=== PATIENT | female | born 1990 | race Caucasian/White ===

== ENCOUNTER 2017-05-26 17:03 | Inpatient (IN) | payer OTHER ==
[2017-05-26] MEDS ORDERED: IBUPROFEN 600 MG TAB PO (18:30)
[2017-05-26] MEDS ORDERED: CARBOPROST 250 MCG INJ IM (18:30)
[2017-05-26] MEDS ORDERED: DINOPROSTONE 10 MG VAG SUPP VAG (18:30)
[2017-05-26] MEDS ORDERED: MISOPROSTOL 200 MCG TAB PR (18:30)
[2017-05-26] MEDS ORDERED: LIDOCAINE 1% (MPF) 30 ML INJ INJ (18:30)
[2017-05-26] MEDS ORDERED: BUTORPHANOL 2 MG INJ IV ×2 (18:30)
[2017-05-26] MEDS ORDERED: OXYTOCIN 30 UNITS/LR 500 ML IV ×2 (18:30)
[2017-05-26] MEDS ORDERED: METHYLERGONOVINE 0.2 MG INJ IM (18:30)
[2017-05-26 18:55] LABS: ADD MAN DIFF? NO
[2017-05-26 18:58] LABS: WHITE BLOOD COUNT 9.9 10^3/ul (4.8-10.8)
[2017-05-26 18:58] LABS: BASOPHILS % 0.3 % (0.0-2.0); EOSINOPHILS # 0.5 10^3/ul (0.0-0.5); EOSINOPHILS % 4.7 % (0.0-7.0); HEMATOCRIT 34.5 % (37.0-47.0); HEMOGLOBIN 11.2 g/dl (12.0-16.0); LYMPHOCYTES # 2.1 10^3/ul (0.8-2.9); LYMPHOCYTES % 21.3 % (15.0-51.0); MEAN CORPUSCULAR HEMOGLOBIN 27.5 pg (29.0-33.0); MEAN CORPUSCULAR HGB CONC 32.5 g/dl (32.0-37.0); MEAN CORPUSCULAR VOLUME 84.6 fl (82.0-101.0); MEAN PLATELET VOLUME 9.8 fl (7.4-10.4); MONOCYTE # 0.5 10^3/ul (0.3-0.9); MONOCYTES % 5.1 % (0.0-11.0); NEUTROPHIL # 6.8 10^3/ul (1.6-7.5); NEUTROPHILS % 68.3 % (39.0-77.0); PLATELET COUNT 331 10^3/UL (140-415); RED BLOOD COUNT 4.08 10^6/ul (4.20-5.40); RED CELL DISTRIBUTION WIDTH 14.2 % (11.5-14.5)
[2017-05-26] MEDS: LACTATED RINGER'S 1,000 ML IV (18:59)
[2017-05-26 19:16] LABS: INR 0.98; PROTIME 13.1 Sec (11.9-14.9)
[2017-05-26 19:17] LABS: PARTIAL THROMBOPLASTIN TIME 32.5 Sec (25.0-35.0)
[2017-05-26 19:26] LABS: ALANINE AMINOTRANSFERASE 33 IU/L (13-69); ALBUMIN 3.4 g/dl (3.3-4.9); ALBUMIN/GLOBULIN RATIO 1.09; ALKALINE PHOSPHATASE 147 IU/L (42-121); ANION GAP 14 (8-16); ASPARTATE AMINO TRANSFERASE 17 IU/L (15-46); BLOOD UREA NITROGEN 9 mg/dl (7-20); CALCIUM 8.8 mg/dl (8.4-10.2); CARBON DIOXIDE 23 mmol/L (21-31); CHLORIDE 103 mmol/L (97-110); CREATININE 0.48 mg/dl (0.44-1.00); GLUCOSE 104 mg/dl (70-220); POTASSIUM 3.7 mmol/L (3.5-5.1); SODIUM 136 mmol/L (135-144); TOTAL PROTEIN 6.5 g/dl (6.1-8.1); URIC ACID 4.4 mg/dl (3.1-7.9)
[2017-05-26] MEDS: OXYTOCIN 30 UNITS/LR 500 ML IV (19:58)
[2017-05-26 20:10] LABS: ALANINE AMINOTRANSFERASE 30 IU/L (13-69); ALBUMIN 3.4 g/dl (3.3-4.9); ALKALINE PHOSPHATASE 146 IU/L (42-121); ANION GAP 13 (8-16); ASPARTATE AMINO TRANSFERASE 22 IU/L (15-46); BLOOD UREA NITROGEN 9 mg/dl (7-20); CALCIUM 9.3 mg/dl (8.4-10.2); CARBON DIOXIDE 23 mmol/L (21-31); CHLORIDE 104 mmol/L (97-110); CREATININE 0.46 mg/dl (0.44-1.00); GLUCOSE 105 mg/dl (70-220); LACTATE DEHYDROGENASE 478 IU/L (313-618); PHOSPHORUS 4.2 mg/dl (2.5-4.9); POTASSIUM 3.8 mmol/L (3.5-5.1); SODIUM 136 mmol/L (135-144); TOTAL PROTEIN 6.7 g/dl (6.1-8.1)
[2017-05-26 20:41] LABS: HEPATITIS B SURFACE ANTIGEN NEGATIVE (NEGATIVE)
[2017-05-26 23:04] LABS: ADD UMIC NO; UR ASCORBIC ACID 40 mg/dL (NEGATIVE); UR BILIRUBIN (Dip) NEGATIVE (NEGATIVE); UR BLOOD (Dip) NEGATIVE (NEGATIVE); UR CLARITY CLEAR (CLEAR); UR COLOR YELLOW (YELLOW); UR GLUCOSE (Dip) NEGATIVE (NEGATIVE); UR KETONES (Dip) NEGATIVE (NEGATIVE); UR LEUKOCYTE ESTERASE (Dip) NEGATIVE Leu/ul (NEGATIVE); UR NITRITE (Dip) NEGATIVE (NEGATIVE); UR SPECIFIC GRAVITY (Dip) 1.013 (1.003-1.030); UR TOTAL PROTEIN (Dip) NEGATIVE (NEGATIVE); UR UROBILINOGEN (Dip) NEGATIVE (NEGATIVE)
[2017-05-27] MEDS: LACTATED RINGER'S 1,000 ML IV ×2 (01:23→10:06)
[2017-05-27] MEDS: OXYTOCIN 30 UNITS/LR 500 ML IV (11:04)
[2017-05-27] MEDS ORDERED: OXYTOCIN 30 UNITS/LR 500 ML IV (14:00)
[2017-05-27] MEDS ORDERED: METHYLERGONOVINE 0.2 MG INJ IM (14:00)
[2017-05-27] MEDS ORDERED: BENZOCAINE 20% 56 ML SPRAY TOP (14:00)
[2017-05-27] MEDS ORDERED: CARBOPROST 250 MCG INJ IM (14:00)
[2017-05-27] MEDS ORDERED: WITCH HAZEL/GLYCERIN PAD PR (14:00)
[2017-05-27] MEDS ORDERED: OXYCODONE/ASPIRIN (4.88/325) TAB PO ×2 (14:00)
[2017-05-27] MEDS ORDERED: ZOLPIDEM 5 MG TAB PO (14:00)
[2017-05-27] MEDS ORDERED: MISOPROSTOL 200 MCG TAB PR (14:00)
[2017-05-27 15:02] LABS: RAPID PLASMA REAGIN NONREACTIVE (NR)
[2017-05-27] MEDS: IBUPROFEN 600 MG TAB PO (18:25)
[2017-05-27] MEDS: SENNA/DOCUSATE NA (8.6MG/50MG) TAB PO (21:10)
[2017-05-28] MEDS: IBUPROFEN 600 MG TAB PO ×5 (00:08→23:51)
[2017-05-28] MEDS: SENNA/DOCUSATE NA (8.6MG/50MG) TAB PO ×2 (09:00→21:29)
[2017-05-28] MEDS: INFLUENZA VIRUS VACCINE 0.5 ML (DISPENSING) IM* (09:00)
[2017-05-28 10:19] LABS: ADD MAN DIFF? NO
[2017-05-28 10:27] LABS: BASOPHILS % 0.3 % (0.0-2.0); EOSINOPHILS # 0.4 10^3/ul (0.0-0.5); EOSINOPHILS % 4.3 % (0.0-7.0); HEMATOCRIT 34.6 % (37.0-47.0); LYMPHOCYTES # 1.9 10^3/ul (0.8-2.9); LYMPHOCYTES % 19.4 % (15.0-51.0); MEAN CORPUSCULAR HEMOGLOBIN 27.4 pg (29.0-33.0); MEAN CORPUSCULAR HGB CONC 31.8 g/dl (32.0-37.0); MEAN CORPUSCULAR VOLUME 86.1 fl (82.0-101.0); MEAN PLATELET VOLUME 9.6 fl (7.4-10.4); MONOCYTE # 0.3 10^3/ul (0.3-0.9); NEUTROPHILS % 72.6 % (39.0-77.0); PLATELET COUNT 314 10^3/UL (140-415); RED BLOOD COUNT 4.02 10^6/ul (4.20-5.40); RED CELL DISTRIBUTION WIDTH 14.4 % (11.5-14.5)
[2017-05-28 10:27] LABS: WHITE BLOOD COUNT 9.6 10^3/ul (4.8-10.8)
[2017-05-28] MEDS: LANOLIN 7 GM TUBE TOP (21:29)
[2017-05-29] MEDS: IBUPROFEN 600 MG TAB PO ×2 (05:48→11:53)
[2017-05-29] MEDS: DIPHTH/TET/ACEL PERTUSS (ADULT) 0.5 ML VIAL IM* (09:00)
[2017-05-29] MEDS: SENNA/DOCUSATE NA (8.6MG/50MG) TAB PO (11:53)
== END 2017-05-29 16:19 | disposition home or self-care (01) | DRG 775 ==
LOC: PP1 05-27 12:01 → L-D 17:03 → PP1 05-27 20:17
PROC: 10E0XZZ Delivery of Products of Conception, External Approach (ICD-10-PCS; principal; 2017-05-27)
DX: O80 Encounter for full-term uncomplicated delivery (principal); Z37.0 Single live birth; Z3A.38 38 weeks gestation of pregnancy
CPT/HCPCS: 76816; 80053; 80069; 80076; 81003; 83615; 84560; 85025; 85384; 85610; 85730; 86592; 86900; 86901; 87340; 90686; 90715